=== PATIENT | female | born 2000 | race Caucasian/White ===

== ENCOUNTER 2024-07-25 15:00 | Emergency (ER) | payer BC, SELFPAY ==
[2024-07-25 15:02] VITALS: BP 137/97; PULSE 86; RESP 18; TEMP 36.4; O2SAT 100; BMI 25.2
--- NOTE | 2024-07-25 15:07 | ED.VIS.FEGU ---
HPI HPI - Female History of Present Illness Chief Complaint: Vag Bld, Preg Informant: patient Pain Pain: Positive for Pelvic Pain Onset: Days (3) Context: Gradual Onset Timing: Intermittent Quality: Positive for Cramping Location: LLQ Worsened by: - (Nothing) Relieved by: - (Nothing) Bleeding Issue: Positive for Vaginal bleeding Onset: Days (3) Context: Gradual Onset Timing: Intermittent Current Severity: Spotting Maximum Severity: Spotting Associated Symptoms Associated Symptoms: Positive for Frequency; Negative for Dysuria Test: Positive P: 0 Narrative Narrative: Patient presents with vaginal spotting and abdominal cramping that has been intermittent over the last 3 days. Patient states she is approximately 7 weeks . Patient is 1 para 0. Patient states her cramping is mainly over the left lower abdomen. Patient states nothing makes it better and nothing makes it worse. Patient states her bleeding is brown. Patient denies any bright red bleeding. Patient states it is only mild spotting. Patient states she contacted her [facility] who referred her to the emergency department. Patient admits to some urinary frequency but denies any dysuria. Patient denies any fevers or chills. Patient admits to some nausea but denies any vomiting. PFSH PFSH Medical History no medical history no medical history Surgical History no surgical history no surgical history Social History Smoking Status: Never smoker ROS ROS ED Constitutional Constitutional ED: Denies chills or fever(s) Eyes Eyes: Denies blurry vision or change in vision ENT ENT ED: Denies rhinorrhea or sore throat Cardiovascular Cardiovascular: Denies chest pain or palpitations Respiratory/Chest Respiratory/Chest: Denies cough or dyspnea Gastrointestinal Gastrointestinal: Reports nausea; Denies vomiting Genitourinary Genitourinary ED: Denies dysuria or hematuria Musculoskeletal Musculoskeletal: Denies back pain or neck pain Integumentary Denies abscess or rash Neurologic Neurologic: Denies headache(s) or weakness Allergic/Immunologic Allergic/Immunologic ED: Denies mouth swelling or urticaria EXAM Physical Exam Const Vital Signs: 07/25/24 15:02 Temperature 97.5 F L Temperature Source Temporal Pulse Rate 86 Respiratory Rate 18 Blood Pressure 137/97 H Blood Pressure Mean 110 Pulse Ox 100 Oxygen Delivery Method Room Air Positive well nourished and well developed General Appearance ED: well developed and NAD HEENT Reports moist mucous membranes Neck supple and no JVD Resp normal respiratory effort and clear to auscultation bilaterally Cardio regular rate and regular rhythm GI soft to palpation, non-tender and non-distended Extremity normal to inspection and full ROM Neuro oriented x3, CN's II-XII intact bilaterally and no sensory deficits noted Sensorium / Orientation: alert Motor Exam: strength 5/5 throughout Psych mental status grossly normal MDM MDM MDM Narrative Medical decision making narrative: Differential diagnosis includes ectopic , threatened miscarriage, urinary tract infection, and implantation bleeding. CBC will be obtained to assess for leukocytosis and anemia. Basic metabolic profile will be obtained to assess for electrolyte abnormality and renal function. Urinalysis will be obtained to assess for urinary tract infection and hematuria. Quantitative hCG will be obtained to assess for . Pelvic ultrasound will be obtained to assess for ectopic and miscarriage. Type and Rh will be obtained to assess for blood type. Lab Data Attestation: I reviewed the patient's lab results. Lab results narrative: CBC was reviewed. There is a slight anemia with a hemoglobin of 10.6 and hematocrit of 34.2. Basic metabolic profile was reviewed and was within normal limits. Quantitative hCG was reviewed and was [id number]. Urinalysis was reviewed. There is no evidence of urinary tract infection or hematuria. Blood type was O+. Labs: Laboratory Results - last 24 hr 07/25/24 07/25/24 15:40 16:45 WBC 7.8 RBC 4.61 Hgb 10.6 L Hct 34.2 L MCV 74.2 L MCH 23.0 L MCHC 31.0 L RDW Std Deviation 44.5 H RDW Coeff of [place] 16.7 H Plt Count 360 MPV 10.6 Immature Gran % (Auto) 0.300 Neut % (Auto) 72.0 H Lymph % (Auto) 14.9 L [place] % (Auto) 10.7 H Eos % (Auto) 1.3 Baso % (Auto) 0.8 Absolute Neuts (auto) 5.6 Absolute Lymphs (auto) 1.16 Nucleated RBC % 0 Sodium 137 Potassium 4.0 Chloride 107 Carbon Dioxide 25.0 Anion Gap 5 BUN 9 Creatinine 0.68 Estim Creat Clear Calc 142.58 Est GFR (MDRD) Af Amer 136 Est GFR (MDRD) Non-Af 112 BUN/Creatinine Ratio 13.2 Glucose 93 Calcium 9.1 HCG, Quant 85678 H Urine Color Yellow Urine Clarity Clear Urine pH 6.5 Ur Specific [place] 1.015 Urine Protein Negative Urine Glucose (UA) Normal Urine Ketones Negative Urine Occult Blood Negative Urine Nitrite Negative Urine Bilirubin Negative Urine Urobilinogen Normal Ur Leukocyte Esterase Negative Urine RBC 0 SEEN Urine WBC 0 SEEN Ur Squamous Epith Cells 0-5 SEEN Urine Bacteria RARE Urine Mucus 0 SEEN Blood Type O POSITIVE Radiography Diagnostic Testing: Clinical Impression(s) from Imaging Studies Obstetrics Ultrasound 07/25/24 15:27 IMPRESSION: Intrauterine gestation with an average ultrasound age of 7 weeks 2 days and ultrasound estimated due date 03/11/2025. heart rate is 126 bpm. Electronically Signed: Saul Harley MD at 17:28 EST , Pelvic ultrasound was obtained. There is an intrauterine gestation with an average age of 7 weeks 2 days. heart rate was 126. This was interpreted by the radiologist and was also independently reviewed by myself Treatment and Re-Evaluation Narrative: Patient was advised of her findings. Patient was instructed on pelvic rest. Patient was instructed to follow-up with her [facility] in 3 to 5 days. Patient understood and was agreeable with the plan. All questions were answered. Discharge Plan Triage Chief Complaint: Vag Bld, Preg ED Provider: Marshall Sanchez Dx/Rx/DC Orders Clinical Impression: Miscarriage, threatened, early , Intrauterine Instructions: ED Abdominal Pain, Early , Miscarriage Threatened Primary Care Provider: Care Physician,No Primary Referrals: Jeanette Liu MD [Med Staff - Active Staff] - 5-7 Days Care Physician,No Primary [Primary Care Provider] - Print Language: Georgian Disposition Disposition: Home, Self Care
--- NOTE | 2024-07-25 15:27 | US_ITS ---
EXAM: US , TRANSVAGINAL CLINICAL INDICATION: Spotting TECHNIQUE: Real-time transvaginal obstetrical ultrasound of the maternal pelvis and a first trimester with image documentation. Transvaginal imaging was used for better evaluation of the fetus and adnexa. COMPARISON: No relevant prior studies available. FINDINGS: GESTATION: There is an intrauterine gestational sac with mean sac diameter 2.8 cm age 7 weeks 6 days. There is a 3 mm yolk sac. There is a pole crown-rump length of 6 mm age 6 weeks 4 days. heart rate is 126 beats per minutes. PLACENTA/AMNIOTIC FLUID: Cannot be adequately evaluated due to the early gestational age. UTERUS/CERVIX: The uterus measures 10.7 x 5 cm x 7.1. No myometrial mass. OVARIES: The right ovary measures 3.6 x 2.0 x 2.6 cm. There is a 1.7 x 2.6 x 1.7 cm cyst in the right ovary. The left ovary is not visualized. FREE FLUID: No free fluid. US/Transvaginal w/Preg US IMPRESSION: Intrauterine gestation with an average ultrasound age of 7 weeks 2 days and ultrasound estimated due date 03/11/2025. heart rate is 126 bpm. Electronically Signed: Saul Harley MD at 17:28 EST ,
[2024-07-25 15:53] LABS: Absolute Lymphocyte Count 1.16 X10^3/uL (0.83-4.51); Absolute Neutrophil Count 5.6 X10^3/uL (2.0-7.7); Basophil# 0.06 X10^3/uL; Basophil% 0.8 % (0-1); Eosinophils% 1.3 % (0-5); Hematocrit 34.2 % (37-47); Hemoglobin 10.6 g/dL (12.0-15.0); Lymphocyte # 1.16 X10^3/ul (0.83-4.51); Lymphocyte % 14.9 % (19-41); Mean Corpuscular Volume 74.2 fL (81-99); Mean Platelet Vol. 10.6 fl (6.2-12.0); Monocyte# 0.83 X10^3/uL; Monocyte% 10.7 % (0-10); NRBC Flagged by Analyzer 0 % (0-5); Neutrophil # 5.62 X10^3/uL (2.7-7.7); Platelet Count 360 K/mm3 (150-450); RBC Distribution Width CV 16.7 % (11.6-14.6); RBC Distribution Width SD 44.5 fl (35.1-43.9); Red Blood Count 4.61 M/mm3 (4.2-5.4); White Blood Count 7.8 K/mm3 (4.4-11.0)
[2024-07-25 16:07] LABS: Anion Gap 5 (5-15); BUN 9 mg/dL (7-18); BUN/Creat Ratio 13.2 RATIO (10-20); Calcium,Total 9.1 mg/dL (8.5-10.1); Chloride 107 mmol/L (98-107); Creatinine, Serum 0.68 mg/dL (0.55-1.02); EST Glomerular Filtration Rate 112 mL/min (>60); Est Glom Filt Rate - Afr Amer 136 mL/min (>60); Estimated Creatinine Clearance 142.58 ml/min; Glucose 93 mg/dL (74-106); Sodium Level 137 mmol/L (136-145)
[2024-07-25 16:23] LABS: hCG Titer Quant., Serum 93066 mIU/mL (1-3)
[2024-07-25 16:51] LABS: Mucous, Urine 0 SEEN /hpf (<or=2+); Red Blood Cells-Urine 0 SEEN /hpf (0-5); White Blood Cells 0 SEEN /hpf (0-5)
[2024-07-25 16:57] LABS: Color, Urine Yellow (Yellow); Glucose, Dipstick Normal (Normal); Ketone-Dipstick Negative (Negative); Specific Gravity, Urine 1.015 (1.002-1.030); Urine Bilirubin Dipstick Negative (Negative); Urine Clarity Clear (Clear)
[2024-07-25 16:58] LABS: Leukocyte Esterase-Dipstick Negative /ul (Negative); Nitrite-Dipstick Negative (Negative); Occult Blood-Urine Negative /ul (Negative); Protein-Dipstick Negative (Negative); Urine Urobilinogen Normal (Normal); Urine pH 6.5 (5.0 - 8.0)
[2024-07-25 17:01] VITALS: BP 103/69; PULSE 69; RESP 16; O2SAT 98
[2024-07-25 17:14] LABS: Squamous Epithelial Cells - UA 0-5 SEEN /hpf (5-10)
[2024-07-25 17:15] LABS: Bacteria RARE /hpf (None Seen)
[2024-07-25 17:48] VITALS: BP 103/69; PULSE 69; RESP 16; TEMP 36.4; O2SAT 98
== END 2024-07-25 17:49 | disposition home or self-care (01) ==
PROVIDERS: Emergency Provider Emergency Medicine; Visit Provider Emergency Medicine
DX: O20.0 Threatened abortion (principal); R35.0 Frequency of micturition; R10.2 Pelvic and perineal pain; Z3A.01 Less than 8 weeks gestation of pregnancy; O99.891 Other specified diseases and conditions complicating pregnancy
CPT/HCPCS: 76817; 80048; 81001; 84702; 85025; 86900; 86901; 99283

== ENCOUNTER → 2024-08-11 | Outpatient (CLI) | payer BC, SELFPAY ==
[2024-08-15 21:07] LABS: Chlamydia By Nucleic Acid AMP Negative (Negative); Gonococcus By Nucleic Acid AMP Negative (Negative)
== END | disposition home or self-care (01) ==
LOC: LABSPEC 16:51
PROVIDERS: Referring Provider Advanced Practice Midwife; Visit Provider Advanced Practice Midwife
DX: Z34.00 Encounter for supervision of normal first pregnancy, unspecified trimester (principal); Z3A.00 Weeks of gestation of pregnancy not specified
CPT/HCPCS: 87086; 87491; 87591

== ENCOUNTER → 2024-08-11 | Outpatient (CLI) | payer BC, SELFPAY ==
[2024-08-23 22:43] LABS: HPV Reflexed? NOT INDICATED
== END | disposition home or self-care (01) ==
LOC: LABSPEC 16:47
PROVIDERS: Referring Provider Advanced Practice Midwife; Visit Provider Advanced Practice Midwife
DX: Z12.4 Encounter for screening for malignant neoplasm of cervix (principal); Z87.42 Personal history of other diseases of the female genital tract
CPT/HCPCS: 88175; G0145

== ENCOUNTER → 2024-08-23 | Outpatient (CLI) | payer BC, SELFPAY ==
[2024-08-23 16:26] LABS: Absolute Lymphocyte Count 1.26 X10^3/uL (0.83-4.51); Absolute Neutrophil Count 5.6 X10^3/uL (2.0-7.7); Basophil# 0.05 X10^3/uL; Basophil% 0.7 % (0-1); Eosinophil# 0.07 X10^3/uL; Eosinophils% 0.9 % (0-5); Hemoglobin 10.7 g/dL (12.0-15.0); Lymphocyte # 1.26 X10^3/ul (0.83-4.51); Lymphocyte % 16.4 % (19-41); Mean Corp Hgb Conc 32.4 g/dL (32-36); Mean Corpuscular Hgb 23.9 pg (27.0-32.0); Mean Corpuscular Volume 73.7 fL (81-99); Mean Platelet Vol. 10.7 fl (6.2-12.0); Monocyte# 0.63 X10^3/uL; Monocyte% 8.2 % (0-10); NRBC Flagged by Analyzer 0 % (0-5); Neutrophil # 5.63 X10^3/uL (2.7-7.7); Neutrophil % 73.4 % (47-70); Platelet Count 323 K/mm3 (150-450); RBC Distribution Width CV 16.9 % (11.6-14.6); Red Blood Count 4.48 M/mm3 (4.2-5.4); White Blood Count 7.7 K/mm3 (4.4-11.0)
[2024-08-23 17:18] LABS: HIV - WCH Non-Reactive (Nonreactive); Hepatitis B Surface Antigen Non-Reactive (Nonreactive); Hepatitis C Antibody Non-Reactive (Nonreactive); Rubella IgG Reactive (Nonreactive); Syphilis Antibodies Non-reactive
== END | disposition home or self-care (01) ==
LOC: BWCLAB 15:39
PROVIDERS: Referring Provider Advanced Practice Midwife; Visit Provider Advanced Practice Midwife
DX: Z34.01 Encounter for supervision of normal first pregnancy, first trimester (principal); Z3A.00 Weeks of gestation of pregnancy not specified
CPT/HCPCS: 36415; 85025; 86703; 86762; 86780; 86803; 86850; 86900; 86901; 87340

== ENCOUNTER → 2024-12-29 | Outpatient (CLI) | payer BC, SELFPAY ==
[2024-12-29 17:11] LABS: Absolute Lymphocyte Count 1.02 X10^3/uL (0.83-4.51); Absolute Neutrophil Count 8.8 X10^3/uL (2.0-7.7); Basophil# 0.03 X10^3/uL; Basophil% 0.3 % (0-1); Eosinophil# 0.05 X10^3/uL; Eosinophils% 0.5 % (0-5); Hematocrit 32.4 % (37-47); Hemoglobin 10.8 g/dL (12.0-15.0); Lymphocyte # 1.02 X10^3/ul (0.83-4.51); Lymphocyte % 9.5 % (19-41); Mean Corp Hgb Conc 33.3 g/dL (32-36); Mean Corpuscular Hgb 26.8 pg (27.0-32.0); Mean Corpuscular Volume 80.4 fL (81-99); Mean Platelet Vol. 10.5 fl (6.2-12.0); Monocyte% 6.5 % (0-10); NRBC Flagged by Analyzer 0 % (0-5); Neutrophil % 81.6 % (47-70); Platelet Count 301 K/mm3 (150-450); RBC Distribution Width CV 13.3 % (11.6-14.6); RBC Distribution Width SD 38.6 fl (35.1-43.9); Red Blood Count 4.03 M/mm3 (4.2-5.4); White Blood Count 10.8 K/mm3 (4.4-11.0)
[2024-12-29 18:00] LABS: Glucose Challenge Gest 1H 50g 126 mg/dL (70-140); HIV Nonreactive (Nonreactive); Syphilis Antibodies Nonreactive (Nonreactive)
== END | disposition home or self-care (01) ==
PROVIDERS: Obstetrics & Gynecology; Referring Provider Advanced Practice Midwife; Visit Provider Advanced Practice Midwife
DX: Z34.02 Encounter for supervision of normal first pregnancy, second trimester (principal)
CPT/HCPCS: 36415; 82950; 85025; 86703; 86780

== ENCOUNTER → 2025-02-23 | Outpatient (CLI) | payer BC, SELFPAY | END | disposition home or self-care (01) | LOC: LABSPEC 15:45 | PROVIDERS: Referring Provider Obstetrics & Gynecology; Visit Provider Obstetrics & Gynecology | DX: Z34.03 Encounter for supervision of normal first pregnancy, third trimester (principal) | CPT/HCPCS: 87081 ==

== ENCOUNTER 2025-03-19 09:45 | Inpatient (IN) | payer BC, SELFPAY ==
[2025-03-19] VITALS (72 sets, daily range): BP systolic 105–146; BP diastolic 55–103; PULSE 65–125; RESP 12–16; TEMP 36.6–37.4; O2SAT 92–100; BMI 32.3
[2025-03-19 09:10] LABS: Hematocrit 35.8 % (37-47); Hemoglobin 12.0 g/dL (12.0-15.0); Mean Corp Hgb Conc 33.5 g/dL (32-36); Mean Corpuscular Volume 79.4 fL (81-99); Mean Platelet Vol. 11.0 fl (6.2-12.0); Platelet Count 250 K/mm3 (150-450); RBC Distribution Width CV 16.7 % (11.6-14.6); RBC Distribution Width SD 46.9 fl (35.1-43.9); Red Blood Count 4.51 M/mm3 (4.2-5.4); White Blood Count 16.4 K/mm3 (4.4-11.0)
[2025-03-19 09:57] LABS: AST(SGOT) 26 U/L (<=31); Alanine Aminotransfer ALT/SGPT 19 U/L (<=34); Estimated Creatinine Clearance 185.19 ml/min (50-250); Uric Acid 4.8 mg/dL (2.6-6.0)
[2025-03-19] MEDS: Lactated Ringers 1,000 ML 50 ML IV (10:30)
[2025-03-19 10:42] LABS: Creatinine, Urine (random) 36.40 mg/dL (28.00-217.00); Protein, Urine (Random) < 6.0 mg/dL (0.0-12.0); Protein:Creat Ratio 145 mg/g CRE (0-200)
[2025-03-19 10:44] LABS: Syphilis Antibodies Nonreactive (Nonreactive)
[2025-03-19] MEDS: Oxytocin 15 Units/NS 250ml 15 UNITS/250 ML IV.SOLN 2 UNITS IV (10:45)
[2025-03-19] MEDS: Lactated Ringers 1,000 ML 999 ML IV (11:00)
[2025-03-19] MEDS: Amnioinfusion- 0.9% NS 1,000 ML IV.SOLN. 1000 ML INTRA-UTER (13:30)
[2025-03-19] MEDS: fentaNYL-bupivacaine (epidural) 100 ML BAG EPIDURAL ×2 (16:00→17:26)
[2025-03-19] MEDS: Lactated Ringers 1,000 ML 200 ML IV (17:10)
[2025-03-19] MEDS: Lidocaine 1% (20 ml mdv) 20 ML Vial INFILT (18:00)
[2025-03-19] MEDS: Oxytocin 15 Units/NS 250ml 15 UNITS/250 ML IV.SOLN 83 UNITS IV (18:41)
[2025-03-20 00:58] VITALS: BP 147/76; PULSE 82; RESP 1; TEMP 36.1; O2SAT 98
[2025-03-20 04:38] VITALS: BP 128/81; PULSE 88; RESP 16; TEMP 36.3; O2SAT 98
[2025-03-20 07:45] VITALS: BP 126/80; PULSE 71; RESP 16; TEMP 36.4
[2025-03-20 12:45] VITALS: BP 127/94; PULSE 80; RESP 16; TEMP 36.6
[2025-03-20 16:00] VITALS: BP 131/73; PULSE 76; RESP 18; TEMP 36.4
[2025-03-20 19:38] VITALS: BP 142/92; PULSE 78; RESP 16; TEMP 36.6; O2SAT 97
[2025-03-21 03:11] VITALS: BP 150/98; PULSE 79; RESP 16; TEMP 36.6; O2SAT 98
[2025-03-21 09:20] VITALS: BP 142/87; PULSE 86; RESP 14; TEMP 36.6; O2SAT 97
== END 2025-03-21 12:30 | disposition home or self-care (01) | DRG 807 ==
LOC: WPOUT 09:55 → WP 09:55
PROVIDERS: Advanced Practice Midwife; Admitting Provider Obstetrics & Gynecology; Referring Provider Obstetrics & Gynecology; Visit Provider Obstetrics & Gynecology
DX: O99.892 Other specified diseases and conditions complicating childbirth (principal); Z37.0 Single live birth; R03.0 Elevated blood-pressure reading, without diagnosis of hypertension; O73.0 Retained placenta without hemorrhage; O76 Abnormality in fetal heart rate and rhythm complicating labor and delivery; O77.0 Labor and delivery complicated by meconium in amniotic fluid; O70.1 Second degree perineal laceration during delivery; Z3A.40 40 weeks gestation of pregnancy
CPT/HCPCS: 59025; 59050; 82565; 82570; 84156; 84450; 84460; 84550; 85027; 86780; 86850; 86900; 86901; 88307; 99221; G0378

== ENCOUNTER → 2025-04-20 | Outpatient (CLI) | payer BC, SELFPAY ==
--- NOTE | 2025-04-20 12:56 | US_ITS ---
PROCEDURE: PELVIC (NON ) 04/20/2025 REASON FOR EXAM: AUB Possible retained products of conception. The patient is 4.5 weeks . TECHNIQUE: PELVIC (NON ) COMPARISON: None FINDINGS: Measurements: Uterus: 9.9 cm x 6.6 cm x 6 cm with a volume of 240.62 mL Endometrial Thickness: 13.7 cm. It is heterogeneous and trilaminar in appearance. Retained products of conception should be ruled out. Right Ovary: 3.1 cm x 2 cm x 2 cm with a volume of 6.61 mL. Left Ovary: 1.3 cm x 1.9 cm x 2.2 cm with a volume of 2.88 mL. Uterus: Normal size, myometrial echotexture, and contour. Endometrium: Heterogeneous thickening of the endometrium. Retained products of conception should be ruled out. Right ovary: Normal size and echotexture. Left ovary: Normal size and echotexture. Other: No large pelvic mass identified. US/Pelvic (Non ) IMPRESSION: Heterogeneous endometrial thickening as described. Retained products of concep tion should be ruled out. Reading Location: [id number]
[2025-04-20 16:00] LABS: hCG Titer Quant., Serum < 1 mIU/mL (<9 non-preg)
== END | disposition home or self-care (01) ==
PROVIDERS: Referring Provider Obstetrics & Gynecology; Visit Provider Obstetrics & Gynecology
DX: O73.1 Retained portions of placenta and membranes, without hemorrhage (principal); Z3A.00 Weeks of gestation of pregnancy not specified
CPT/HCPCS: 36415; 76856; 84702